=== PATIENT | female | born 1955 | race Caucasian/White ===

== ENCOUNTER 2023-07-27 00:44 | Emergency (ER) | payer SELFPAY ==
[2023-07-27 00:47] VITALS: BP 162/124
[2023-07-27 02:40] VITALS: BP 164/94
[2023-07-27 03:00] VITALS: BP 161/83
--- NOTE | 2023-07-27 03:45 | ED.GENMED ---
History of Present Illness
<JENNA To - Last Filed: 07/27/23 04:54>
General
Chief Complaint: Back Pain
Source: patient
Exam Limitations: none
Time Seen by Provider: 07/27/23 03:31
Travel History
Have you had any contact with someone who has COVID-19?: No
Do you have any symptoms of coronavirus? Fever > 100 degrees, chills, cough, shortness of breath, sore throat, loss of taste or smell, muscle aches, or headache?: No
History of Present Illness
History of Present Illness:
67 YO F with a PMH of significant smoking history x 50 years presents with complaint of progressively worsening right-sided lower back pain x 3 days. Pt states the pain is constant. Pt states she was walking outside a few hours ago, and began to
complain of worsening back pain. She has not tried medication to relieve her pain. She states it is worse with movement. Pt reports she does not take daily medications. She denies radiation of pain. She rates the severity a 3/10.
1/2 pack a day x 50 years (smoker)
Denies bladder incontinence, chest pain, SOB, N,V, and diarrhea. Denies numbness or tingling. Denies surgical history. Denies recent trauma or falls.
Review of Systems
<JENNA To - Last Filed: 07/27/23 04:54>
Review of Systems
Constitutional: Reports no symptoms
EENT: Reports no symptoms
Respiratory: Reports no symptoms
Cardiac: Reports no symptoms
ABD/GI: Reports no symptoms
: Reports no symptoms
Musculoskeletal: Reports muscle pain (Right-sided lower back pain x 3 days)
Phy Exam
<JENNA To - Last Filed: 07/27/23 04:54>
Physical Exam
Physical Exam:
+Tenderness over right sided low back > left sided low back
+Slight tenderness over the lumbar spine
General Physical Exam
General Presentation: well appearing
General age: appears stated age
General Habitus: normal
General Mental: alert
Cardiovascular Exam
Cardiovascular Exam: regular rate/rhythm
Musculoskeletal Exam
Musculoskeletal Exam: back pain and back tenderness
Course
<Flor Gomez STPA - Last Filed: 07/27/23 04:54>
Orders/Labs/Results
Orders:
Orders
07/27/23 03:42
CT Head W/o Iv Contrast Urgent
Comment:
Reason For Exam: fall
07/27/23 04:48
Acetaminophen [Tylenol] 650 mg PO NOW STA
Vital Signs
Initial and Last Documented VS:
Initial Vital Signs
Temp Pulse Resp BP Pulse Ox
98 F 98 22 162/124 97
07/27/23 00:47 07/27/23 00:47 07/27/23 00:47 07/27/23 00:47 07/27/23 00:47
Last Documented Vital Signs
Temp Pulse Resp BP Pulse Ox
98 F 98 22 164/94 97
07/27/23 00:47 07/27/23 00:47 07/27/23 00:47 07/27/23 02:40 07/27/23 00:47
<Merlin Delong DO - Last Filed: 07/27/23 04:53>
Orders/Labs/Results
Orders:
Orders
07/27/23 03:42
CT Head W/o Iv Contrast Urgent
Comment:
Reason For Exam: fall
07/27/23 04:48
Acetaminophen [Tylenol] 650 mg PO NOW STA
Vital Signs
Initial and Last Documented VS:
Initial Vital Signs
Temp Pulse Resp BP Pulse Ox
98 F 98 22 162/124 97
07/27/23 00:47 07/27/23 00:47 07/27/23 00:47 07/27/23 00:47 07/27/23 00:47
Last Documented Vital Signs
Temp Pulse Resp BP Pulse Ox
98 F 98 22 164/94 97
07/27/23 00:47 07/27/23 00:47 07/27/23 00:47 07/27/23 02:40 07/27/23 00:47
<JENNA To - Last Filed: 07/27/23 04:54>
MDM/Problems Addressed
Differential Diagnosis Includes:
Low back pain, low back strain, cauda equina
MDM/Problems Addressed:
Right sided lower back pain x 3 days, worsening this evening
<JENNA To - Last Filed: 07/27/23 04:54>
*Critical Care Note
Total Time (30-74mins, 75-104mins- exclusive of procedures): Not Applicable
ED Attending Note
<JENNA To - Last Filed: 07/27/23 04:54>
-
Portions of this chart may have been created with voice recognition software.� Occasional wrong word or��sound alike� substitutions may have occurred due to the inherent limitations of voice recognition software.
<Merlin Delong DO - Last Filed: 07/27/23 04:53>
ED Attending Note
Patient seen and examined by attending physician: Yes
I performed the substantive portion of visit, reviewed & personally made and approve the management plan that is documented in note by myself or ESTHER.: Yes
ED Attending Note:
this a pleasant 67-year-old female who presents with low back pain that has been worsening over the last few days. Patient is homeless and was found wandering around [place]. Patient told police that she had back pain. Upon arrival, patient
states that her back pain had resolved. Patient was seen in conjunction with the PA student. I have reviewed and agree with the history and treatment plan presented. On my independent physical exam, patient is awake, alert, and oriented [id number]
comfortably. No acute distress. She did eat a whole sandwich tray.
Discharge Plan
Departure
Referrals:
Chele Garcia, [Family Provider] -
Interventions
Interventions:
*Risk Screen - Suicide Last Done: 07/27/23 00:47
*Neglect/Abuse Screening Last Done: 07/27/23 00:47
ED- Fall Risk Assessment Last Done: 07/27/23 02:44
ED-Musculoskeletal Assessment Last Done: 07/27/23 02:44
ED-Psychological Assessment Last Done: 07/27/23 02:46
Discharge Date and Time
Print Language: LITHUANIAN
[2023-07-27 04:00] VITALS: BP 149/86
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
== END 2023-07-27 05:23 | disposition home or self-care (01) ==
LOC: EMR 00:44
PROVIDERS: EMERGENCY PHYSICIAN Student in an Organized Health Care Education/Training Program; FAMILY PHYSICIAN Family Medicine
DX: M54.50 Low back pain, unspecified (principal); M79.18 Myalgia, other site; Z59.00 Homelessness unspecified; F17.200 Nicotine dependence, unspecified, uncomplicated; Z91.018 Allergy to other foods
CPT/HCPCS: 99284; 70450